=== PATIENT | female | born 1965 | race Caucasian/White ===

== ENCOUNTER → 2017-12-24 | Outpatient (CLI) | payer OTHER ==
[~2017-12-24] MED LIST: AFRIN15 ML NS; ERYTHROMYCIN E3.5 G1 OPHTHALMIC; GENTAMICIN SU3 MG/ML OPHTHALMIC; IBUPROFEN 200200 M1 PO; IBUPROFEN 800800 M1 PO; NOHOMEMEDICATIONS; TMP-POLYMYXIN B10 ML OP; ZPAK PO
== END ==
LOC: M.RAD 10:41
DX: Z12.31 Encounter for screening mammogram for malignant neoplasm of breast (principal)

== ENCOUNTER → 2020-04-25 | Outpatient (CLI) | payer OTHER | LOC: M.RAD 10:01 | PROVIDERS: ATTEND Internal Medicine | DX: Z12.31 Encounter for screening mammogram for malignant neoplasm of breast (principal) ==

== ENCOUNTER → 2021-04-15 | Outpatient (CLI) | payer OTHER | LOC: M.RAD 10:00 | PROVIDERS: ATTEND Internal Medicine | DX: Z12.31 Encounter for screening mammogram for malignant neoplasm of breast (principal) ==